=== PATIENT | female | born 1975 | race Caucasian/White ===

== ENCOUNTER 2019-12-09 09:07 | Emergency (ER) | payer BC, SELFPAY ==
[2019-12-09] VITALS (7 sets, daily range): BP systolic 125–154; BP diastolic 78–99; PULSE 90–124; RESP 17–20; TEMP 36.4; O2SAT 97–98
--- NOTE | ~2019-12-09 | XR_ITS ---
EXAMINATION: XR chest 2V EXAM DATE: 12/09/2019 09:52 INDICATION: Shortness of breath, left-sided chest pain. TECHNIQUE: Frontal and lateral projections of the chest obtained and reviewed. There is no prior denice dy for comparison. FINDINGS: The lungs are clear. There are no pleural effusions. The cardiomediastinal silhouette is within normal limits. There is no pneumothorax suspected. The bones and soft tissues are unremarkab le. There are cholecystectomy clips. IMPRESSION: No acute cardiopulmonary findings. Reviewed, dictated and finalized at location A.
--- NOTE | ~2019-12-09 | CT_ITS ---
EXAMINATION: CTA chest abdomen pelvis DATE: 12/09/2019 13:08 INDICATION: Shortness of breath, chest pain, back pain and abdominal pain TECHNIQUE: Computed tomographic angiography (CTA) of the chest, abdomen, and pelvis was performed wit h 100 mL Omnipaque-350 intravenous contrast. Volume-rendered 3D-reconstructions of the aorta and larg e arteries were constructed by the technologist on a separate workstation. The dose-length product wa s 683 mGy-cm. COMPARISON: None FINDINGS: Chest: Respiratory motion and minimal atelectasis in the bilateral lungs. No pneumonia, pulmonary edema or p leural effusion. Small calcified nodules in the superior segment of the right lower lobe and calcifie d right hilar lymph nodes consistent with old granulomatous disease. Heart size is normal. No pericar dial effusion. Thoracic aorta is normal in caliber with no dissection. Although not performed as a de dicated pulmonary embolism protocol there is good contrast opacification of the pulmonary arteries de monstrating no pulmonary embolism through these the first order segmental pulmonary arteries. Minimal likely physiologic anterior wedging at T11 and T12. Bones are otherwise unremarkable. Abdomen and pelvis: Diffuse hepatic steatosis. Cholecystectomy clips at the gallbladder fossa. Spleen, pancreas and right adrenal gland are normal. 7 mm low-attenuation left adrenal adenoma. Bilateral kidneys are normal. B owels including the appendix are normal. Bladder and bilateral adnexa are normal. Likely sec tion scar along the anterior wall of the otherwise normal uterus. No free intraperitoneal gas or flui d. No pathologically enlarged abdominal or pelvic lymphadenopathy. Normal caliber abdominal aorta wit h no aneurysm or dissection. Incidentally noted accessory right renal artery and early bifurcation of the left renal artery which occurs essentially at the origin. Minimal amount of scattered atheroscle rotic plaque in the abdominal aorta and common iliac arteries with no hemodynamically significant gladys nosis. Lower lumbar spondylosis with mild disc height loss at L4-L5 and severe disc height loss at L5 -S1. IMPRESSION: 1. No acute intrathoracic, abdominal or pelvic process. Reviewed, dictated and finalized at location A.
--- NOTE | 2019-12-09 09:16 | ECG_ITS ---
Measurements Intervals [place] Rate: 114 P: 31 NC: 88 QRS: 41 QRSD: 91 T: 74 QT: 346 QTc: 477 Interpretive Statements SINUS TACHYCARDIA WITH SHORT NC INTERVAL ABNORMAL ECG Electronically Signed On 12-09-2019 10:12:43 CDT by Shant Mai D.O.
[2019-12-09 09:29] LABS: Basophils Absolute Auto 0.1 K/mm3 (0.0-0.1); Basophils Percent Auto 0.6 % (0.2-1.2); Eosinophils Absolute Auto 0.1 K/mm3 (0-0.3); Eosinophils Percent Auto 1.5 % (0-4.4); Hematocrit 43.8 % (37.0-47.0); Hemoglobin 15.4 g/dL (12.0-15.0); Immature Granulocyte Absolute 0.02 K/mm3 (0.00-0.031); Immature Granulocyte Percent A 0.2 % (0-0.5); Lymphocytes Absolute Auto 1.31 K/mm3 (0.9-3.2); Lymphocytes Percent Auto 15.4 % (18.3-44.2); Mean Corpuscular HGB Conc 35.2 g/dl (32-36); Mean Corpuscular Hemoglobin 30.9 pg (26-34); Mean Platelet Volume 10.1 fl (7.4-10.4); Monocytes Absolute Auto 0.5 K/mm3 (0.1-0.6); Monocytes Percent Auto 6.1 % (2.6-8.5); Neutrophils Absolute Auto 6.5 K/mm3 (1.3-6.7); Neutrophils Percent Auto 76.2 % (45.5-73.1); Platelet Count Result 224 k/mm3 (150-375); Red Blood Count 4.98 M/mm3 (4.2-5.4); Red Cell Distribution Width 12.5 % (11.5-14.5); White Blood Count 8.5 K/mm3 (4.5-10.0)
--- NOTE | 2019-12-09 09:38 | ED.SOB ---
HPI - SOB/Dyspnea General Chief Complaint: Shortness of Breath/Dyspnea Stated Complaint: CP/DIFFICULTY BREATHING Time Seen by Provider: 12/09/19 09:16 Source: patient Mode of arrival: EMS Limitations: no limitations History of Present Illness HPI Narrative: This patient is a 44 year female smoker with history of asthma who presents for evaluation of shortness of breath. PAtient reports 2 hours ago she felt like she could not breath. She was able to use her rescue inhaler, and she started feeling better. She started to feel shortness of breath when she walked to the kitchen so she called 911. She also reports aching pain to bilateral shoulders and side. She was given nitroglycerin x 1 and she reports she feels better. MD elicited complaint: shortness of breath Pertinent past history: asthma Related Data Allergies Allergy/AdvReac Type Severity Reaction Status Date / Time Penicillins Allergy Nausea and Verified 12/09/19 10:01 Vomiting Review of Systems Review of Systems: All systems reviewed & are unremarkable except as noted in HPI and below Constitutional: Constitutional: Denies chills and Denies fever(s) ENT: Reports nasal congestion, Reports nasal discharge, Reports sinus pain and Reports sinus pressure Cardiovascular: Cardiovascular: Reports chest pain and Reports radiating jaw, neck or arm pain Respiratory: Respiratory: Reports cough and Reports dyspnea Gastrointestinal: Gastrointestinal: Denies abdominal pain, Denies diarrhea, Denies nausea and Denies vomiting PMFSH Past Medical History Medical History (Updated 12/09/19 @ 15:55 by Bianca Bean MD) Asthma Social History Social History (Updated 12/09/19 @ 09:38 by Bianca Bean MD) Smoking packs per day: 1 Smoking cigarettes per day: 20.0 Smoking status: Current every day smoker Gender identity (if verbalized by the patient): Female Exam Narrative: Exam Narrative: GENERAL: Well-appearing, well-nourished, and in no acute distress. HEAD: Normocephalic, atraumatic EYES: PERRLA and EOMI, conjunctiva clear without discharge EARS: TM's clear bilaterally without erythema or dullness NOSE: Nares clear, no rhinorrhea or epistaxis THROAT:Mucous membranes moist, Oropharynx normal without erythema, exudate, peritonsillar swelling or fluctuance NECK: Supple, without lymphadenopathy or mass RESPIRATORY: No respiratory distress, Airway patent, Respirations non-labored, Clear to auscultation without rales, rhonchi or wheeze HEART: Regular rate and rhythm. No murmur heard. Normal peripheral pulses. ABDOMEN: Soft, nontender, nondistended, normal active bowel sounds. No masses. No rebound or guarding, No organomegaly. EXTREMITIES: No edema, normal strength with full range of motion. SKIN: Warm, dry, normal color without rash NEURO: Alert and oriented x3. CN 2-12 grossly intact. No focal deficits. PSYCH: Normal mood and affect. Course Reevaluation(s) Reevaluation #1: PAtient just walked back to room from bathroom and she is complaining of upper back pain, abdominal pain . Her heart rate was noticed to have increased to 140 . I discussed with patient will order CTA and IVF for evaluation of aorta, occult pneumonia. Date: 12/09/19 Time: 12:20 Reevaluation #2: PAtien has no complaints. HR has improved with IVF. Date: 12/09/19 Time: 15:53 Vital Signs Vital signs: Vital Signs Temperature 97.5 F L 12/09/19 09:02 Pulse Rate 124 H 12/09/19 09:02 Respiratory Rate 17 12/09/19 09:02 Blood Pressure 154/99 H 12/09/19 09:02 Pulse Oximetry 98 12/09/19 09:02 Temperature 97.5 F L 12/09/19 09:02 Pulse Rate 90 12/09/19 15:39 Respiratory Rate 17 12/09/19 15:39 Blood Pressure 154/99 H 12/09/19 15:39 Pulse Oximetry 97 12/09/19 15:39 MDM - SOB/Dyspnea Differential Diagnosis Differential diagnosis: Likely acute exacerbation of chronic obstructive airways disease, congestive heart failure, community acquired pne
[2019-12-09 09:39] LABS: Prothrombin Time 12.9 Seconds (11.1-14.7)
[2019-12-09 09:40] LABS: Partial Thromboplastin Time 26.4 SECONDS (22.3-36.8)
[2019-12-09 09:41] LABS: Anion Gap 10 mmol/L (8-16); Blood Urea Nitrogen 9 mg/dL (7-17); Calcium 9.6 mg/dL (8.4-10.2); Carbon Dioxide 24 mmol/L (22-30); Chloride 103 mmol/L (98-107); Estimated CRCL calculation 91 ml/min; Estimated Glomerular Filt Rate > 60; Glucose 166 mg/dL (65-105); Potassium 3.6 mmol/L (3.4-5.0); Sodium 137 mmol/L (137-145)
[2019-12-09 09:53] LABS: Troponin I < 0.012 ng/mL (0.000-0.034)
[2019-12-09 10:02] LABS: Alveolar/Arterial O2 Gradient 17.6 mmHg; Base Excess ABG -1.8 mEq/l (+/-2.0); Carboxyhemoglobin 3.1 % THb (0-2.0); Fractional Inspired Oxygen 21 %; HCO3 ABG 22.6 mEq/l (22.0-26.0); Methemoglobin ABG 0.3 %THb (0-1.5); Oxygen Content ABG 20.7 %vol (16.0-22.0); Oxygen Saturation ABG 96.7 % (95.0-100.0); Oxyhemoglobin 93.4 % THb (90.0-100.0); PCO2 ABG 37.5 mmHg (35.0-45.0); PO2 ABG 87.2 mmHg (80.0-100.0); PO2 FiO2 Ratio Arterial Blood 4.15 %; Reduced Hemoglobin 3.2 %THb (0-5.0); Total Hemoglobin 15.7 g/dL (12.0-18.0); pH ABG 7.397 (7.350-7.450)
[2019-12-09 10:03] LABS: Device ROOM AIR; Site Drawn LEFT BRACHIAL
[2019-12-09 10:13] LABS: D Dimer 0.27 ug/mL (<0.48)
[2019-12-09] MEDS: ONDANSETRON INJ 4 MG/2 ML VIAL (10:14)
--- NOTE | 2019-12-09 10:14 | PC.NURSE ---
fer for zofran 4 mg ivp x1 from dr monroy
[2019-12-09 10:30] LABS: Lactic Acid Reflex 1.3 mmol/L (0.7-2.1); Magnesium 1.7 mg/dL (1.6-2.3)
[2019-12-09] MEDS: SODIUM CHLORIDE 0.9% IV 1,000 ML 999 ML IV CONT (12:27)
[2019-12-09 12:28] LABS: Troponin I < 0.012 ng/mL (0.000-0.034)
[2019-12-09] MEDS: LACTATED RINGERS 1,000 ML 999 ML IV CONT (13:47)
[2019-12-09 15:54] LABS: Troponin I < 0.012 ng/mL (0.000-0.034)
== END 2019-12-09 16:21 | disposition home or self-care (01) ==
PROVIDERS: Emergency Provider General Practice; PCP Internal Medicine
DX: J45.909 Unspecified asthma, uncomplicated (principal); R00.0 Tachycardia, unspecified; F17.210 Nicotine dependence, cigarettes, uncomplicated
CPT/HCPCS: 36415; 36600; 71046; 71275; 74174; 80048; 82375; 82805; 83050; 83605; 83735; 84484; 85025; 85380; 85610; 85730; 93005; 96374; 99284; J2405; J7030; J7120; Q9967